=== PATIENT | female | born 1945 | race Caucasian/White ===

== ENCOUNTER 2017-10-16 15:30 | Emergency (ER) | payer MEDICARE, BC ==
[~2017-10-16] VITALS: Ht 167.6 cm; Wt 58.0 kg
[2017-10-16 15:34] VITALS: BP 97/51; TEMP 98.1
[2017-10-16 15:47] VITALS: BP 132/64; PULSE 67; O2SAT 100
[2017-10-16 15:55] VITALS: BP_SYST 130; BP_SYST 134; BP_DIAS 60; BP_DIAS 62
[2017-10-16] MEDS ORDERED: SODIUM CHLOR 0.9% 1000 ML INJ 1,000 ML IV ONE (16:00)
[2017-10-16] MEDS ORDERED: SODIUM CHLORID 0.9% 500 ML INJ 500 ML IV ONE (16:00)
--- NOTE | 2017-10-16 16:12 | PD ---
HPI Chief Complaint: Syncope/Near-Syncope Time Seen by Provider: 15:32 Travel History International Travel<30 days: No Contact w/Intl Traveler<30days: No Traveled to known affect area: No History of Present Illness HPI 72-year-old female that presents to the ED for evaluation of presyncope. Apparently patient was visiting her sister who got in an MVA and is admitted to this hospital. Apparently when she got in the room she started feeling hot, started getting very lightheaded and almost passed out per patient. is at bedside who helped the patient to a chair. She did not hit her head or lose consciousness. She does have a history of atrial fibrillation in the past. She has a history of low blood pressure in the past. 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 She reports having episodes like this in the past and this will be the third time. Apparently patient has never been seen for this before however. She did went to see her primary care doctor on Thursday and had routine blood work and imaging that did not show any sign of acute disease. She denies any symptoms preloading to the episode alert and feeling lightheaded and hot. She denies any chest pain or shortness of breath. Currently she feels as symptomatic. She states eating and drinking today. No allergies to medication. No other medical issues. No numbness, tingling, weakness. PFSH Past Medical History AAA: Yes (ascending aortic aneursym 4.4 cm at last measurement 04/2017) Musculoskeletal: Yes (2 metal rods and 6 screws in back/stenosis & ruptured disc/scoliosis) Respiratory: Yes (bronchitis 2 mths ago) Influenza Vaccination: Yes ?: Not Social History Alcohol Use: No Tobacco Use: No Substance Use: No Allergies-Medications (Allergen,Severity, Reaction): Coded Allergies: No Known Allergies (Unverified , 10/16/17) Reported Meds & Prescriptions Reported Meds & Active Scripts Active Keflex (Cephalexin) 500 Mg Cap 500 Mg PO Q12H 7 Days Review of Systems Except as stated in HPI: all other systems reviewed are Neg Physical Exam Narrative GENERAL: SKIN: Warm and dry. HEAD: Atraumatic. Normocephalic. EYES: Pupils equal and round. No scleral icterus. No injection or drainage. ENT: No nasal bleeding or discharge. Mucous membranes pink and moist. Tongue is midline. No uvula deviation. NECK: Trachea midline. No JVD. CARDIOVASCULAR: Regular rate and rhythm. No murmurs, S3, S4. RESPIRATORY: No accessory muscle use. Clear to auscultation. Breath sounds equal bilaterally. GASTROINTESTINAL: Abdomen soft, non-tender, nondistended. Hepatic and splenic margins not palpable. MUSCULOSKELETAL: Extremities without clubbing, cyanosis, or edema. No obvious deformities. Full range of motion of the upper and lower extremities bilaterally. 2+ pulses bilaterally. NEUROLOGICAL: Awake and alert. No obvious cranial nerve deficits. Motor grossly within normal limits. Five out of 5 muscle strength in the arms and legs. Normal speech. PSYCHIATRIC: Appropriate mood and affect; insight and judgment normal. Data Data Last Documented VS Vital Signs Date Time Temp Pulse Resp B/P (MAP) Pulse Ox O2 Delivery O2 Flow Rate FiO2 10/16/17 15:55 134/62 (86) 130/60 (83) 10/16/17 15:47 67 100 Room Air 10/16/17 15:34 98.1 Orders Orders Electrocardiogram (10/16/17 15:41) Complete Blood Count With Diff (10/16/17 15:41) Basic Metabolic Panel (Bmp) (10/16/17 15:41) Ckmb (Isoenzyme) Profile (10/16/17 15:41) Troponin I (10/16/17 15:41) Prothrombin Time / Inr (Pt) (10/16/17 15:41) Act Partial Throm Time (Ptt) (10/16/17 15:41) Urinalysis - C+S If Indicated (10/16/17 15:41) Magnesium (Mg) (10/16/17 15:41) Thyroid Stimulating Hormone (10/16/17 15:41) Chest, Single Ap (10/16/17 15:41) Ct Brain W/O Iv Contrast(Rout) (10/16/17 15:41) Iv Access Insert/Monitor (10/16/17 15:41) Ecg Monitoring (10/16/17 15:41) Oximetry (10/16/17 15:41) Cta Thor Abd Aorta W Iv C W3d (10/16/17 ) Orthostatic Vital Signs (10/16/17 15:42) Sodium Chlor 0.9% 1000 Ml Inj (Ns 1000 M (10/16/17 16:00) Sodium Chlorid 0.9% 500 Ml Inj (Ns 500 M (10/16/17 16:00) Iohexol 350 Inj (Omnipaque 350 Inj) (10/16/17 18:22) Radiology Film Requests (10/16/17 ) Radiology Film Requests (10/16/17 ) Ed Discharge Order (10/16/17 19:30) Labs Laboratory Tests Test 10/16/17 15:41 10/16/17 18:40 White Blood Count 4.6 TH/MM3 Red Blood Count 4.09 MIL/MM3 Hemoglobin 13.1 GM/DL Hematocrit 39.5 % Mean Corpuscular Volume 96.5 FL Mean Corpuscular Hemoglobin 32.1 PG Mean Corpuscular Hemoglobin Concent 33.3 % Red Cell Distribution Width 14.0 % Platelet Count 179 TH/MM3 Mean Platelet Volume 9.0 FL Neutrophils (%) (Auto) 45.9 % Lymphocytes (%) (Auto) 44.8 % Monocytes (%) (Auto) 6.7 % Eosinophils (%) (Auto) 2.3 % Basophils (%) (Auto) 0.3 % Neutrophils # (Auto) 2.1 TH/MM3 Lymphocytes # (Auto) 2.1 TH/MM3 Monocytes # (Auto) 0.3 TH/MM3 Eosinophils # (Auto) 0.1 TH/MM3 Basophils # (Auto) 0.0 TH/MM3 CBC Comment DIFF FINAL Differential Comment Prothrombin Time 10.3 SEC Prothromb Time International Ratio 1.0 RATIO Activated Partial Thromboplast Time 23.0 SEC Blood Urea Nitrogen 16 MG/DL Creatinine 0.85 MG/DL Random Glucose 98 MG/DL Calcium Level 8.9 MG/DL Magnesium Level 2.0 MG/DL Sodium Level 143 MEQ/L Potassium Level 4.0 MEQ/L Chloride Level 110 MEQ/L Carbon Dioxide Level 26.0 MEQ/L Anion Gap 7 MEQ/L Estimat Glomerular Filtration Rate 66 ML/MIN Total Creatine Kinase 76 U/L Troponin I LESS THAN 0.02 NG/ML Thyroid Stimulating Hormone 3rd Gen 4.390 uIU/ML Urine Color YELLOW Urine Turbidity CLEAR Urine pH 6.0 Urine Specific [place] 1.020 Urine Protein NEG mg/dL Urine Glucose (UA) NEG mg/dL Urine Ketones TRACE mg/dL Urine Occult Blood SMALL Urine Nitrite NEG Urine Bilirubin NEG Urine Urobilinogen LESS THAN 2 mg/dL Urine Leukocyte Esterase TRACE Urine RBC 4 /hpf Urine WBC 1 /hpf Urine Bacteria OCC /hpf Urine Mucus FEW /lpf Microscopic Urinalysis Comment CULT NOT INDICATED MDM Medical Decision Making Medical Screen Exam Complete: Yes Emergency Medical Condition: Yes Medical Record Reviewed: Yes Interpretation(s) CBC & BMP Diagram 10/16/17 15:41 Calcium Level 8.9, Magnesium Level 2.[address] 10/16/17 1541 Signed Impressions: CONCLUSION: Negative noncontrast head CT. Chest X-Ray 10/16/17 1541 Signed Impressions: CONCLUSION: No acute cardiopulmonary disease. Aorta CTA 10/16/17 0000 Signed Impressions: CONCLUSION: No evidence of acute arterial injury. 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 Troponin and CK-MB negative Urine did show signs of possible UTI. Differential Diagnosis Syncope versus presyncope versus ACS versus aneurysm rupture versus arrhythmia versus normal exam Narrative Course 72-year-old female that presents to the ED for evaluation of syncope. Patient was properly examined and was found to have signs and symptoms consistent with presyncope. She apparently had some low blood pressure. She does have a history of aneurysm. Patient does have good pulses in all extremities. We will do lab work and imaging. My attending Dr. Kingston agrees that this should be done. Labs and imaging showed possible UTI and what appears to be aneurysm of 4.5 cm. I discussed the case with Dr. Terrell for cardiothoracic surgery who agrees the patient can follow-up outpatient for the aneurysm. I spoke with my attending Dr. Carter to evaluate the patient himself and agrees the patient can be discharged with follow-up with PCP. Patient was started Keflex for possible UTI. Told to follow-up closely with PCP. See ED if worsening symptoms. Drink plenty of fluids. Diagnosis Primary Impression: Pre-syncope Additional Impressions: UTI (urinary tract infection) Qualified Codes: N30.00 - Acute cystitis without hematuria Thoracic aortic aneurysm Qualified Codes: I71.2 - Thoracic aortic aneurysm, without rupture Patient Instructions: General Instructions Additional Instructions: Follow-up with PCP. Follow with her thoracic surgeon. See ED if worsening symptoms. Take medication as prescribed. Med/Other Pt SpecificInfo: Prescription(s) given Scripts Cephalexin (Keflex) 500 Mg Cap 500 MG PO Q12H for Infection for 7 Days, #14 CAP 0 Refills Prov: Live Kingston MD 10/16/17 Disposition: 01 DISCHARGE HOME Condition: Stable Jesus Sykes Oct 16, 2017 16:12
--- NOTE | 2017-10-16 16:16 | RADRPT ---
EXAM DATE: 10/16/2017 4:08 PM EDT AGE/SEX: 72 years / Female INDICATIONS: Syncopal episode today CLINICAL DATA: This is the patient's initial encounter. Patient reports that signs and symptoms have been present for 1 day and indicates a pain score of 0/10. MEDICAL/SURGICAL HISTORY: None. None. COMPARISON: No prior exams available for comparison. FINDINGS: No significant focal pleural or parenchymal opacities. Cardiomediastinal contours are within normal l imits. Bony thorax is intact. CONCLUSION: No acute cardiopulmonary disease. Electronically signed by: Rivas Santiago MD 10/16/2017 4:14 PM EDT
[2017-10-16 16:36] LABS: AUTOMATED NEUTROPHIL # 2.1 TH/MM3 (1.8-7.7); BASOPHIL % 0.3 % (0.0-2.0); EOSINOPHIL # 0.1 TH/MM3 (0-0.4); EOSINOPHIL % 2.3 % (0.0-4.0); HEMATOCRIT 39.5 % (35.0-46.0); HEMOGLOBIN 13.1 GM/DL (11.6-15.3); LYMPH % 44.8 % (9.0-44.0); LYMPHOCYTE # 2.1 TH/MM3 (1.0-4.8); MEAN CELL VOLUME 96.5 FL (80.0-100.0); MEAN CORPUSCULAR HEMOGLOBIN 32.1 PG (27.0-34.0); MEAN CORPUSCULAR HGB CONC 33.3 % (32.0-36.0); MONO % 6.7 % (0.0-8.0); MONOCYTE # 0.3 TH/MM3 (0-0.9); NEUT % 45.9 % (16.0-70.0); PLATELET COUNT 179 TH/MM3 (150-450); RED BLOOD COUNT 4.09 MIL/MM3 (4.00-5.30); WHITE BLOOD COUNT 4.6 TH/MM3 (4.0-11.0)
[2017-10-16 16:37] LABS: PROTHROMBIN TIME - PATIENT 10.3 SEC (9.8-11.6)
[2017-10-16 16:51] LABS: BLOOD UREA NITROGEN 16 MG/DL (7-18); CALCIUM 8.9 MG/DL (8.5-10.1); CHLORIDE 110 MEQ/L (98-107); CREATININE 0.85 MG/DL (0.50-1.00); GLOMERULAR FILTRATION RATE 66 ML/MIN (>89); GLUCOSE,RANDOM 98 MG/DL (74-106); SODIUM (NA) 143 MEQ/L (136-145)
[2017-10-16 17:00] LABS: TROPONIN I LESS THAN 0.02 NG/ML (0.02-0.05)
--- NOTE | 2017-10-16 18:05 | RADRPT ---
EXAM DATE: 10/16/2017 6:01 PM EDT AGE/SEX: 72 years / Female INDICATIONS: Dizziness today. CLINICAL DATA: This is the patient's initial encounter. Patient reports that signs and symptoms have been present for 1 day and indicates a pain score of 0/10. MEDICAL/SURGICAL HISTORY: None. None. RADIATION DOSE: 39.54 CTDI (mGy) COMPARISON: No prior exams available for comparison. TECHNIQUE: CT of the head without contrast. Using automated exposure control and adjustment of the mA and/or kV according to patient size, radiation dose was kept as low as reasonably achievable to ob tain optimal diagnostic quality images. DICOM format image data is available electronically for revi ew and comparison. FINDINGS: Cerebrum: The ventricles are normal for age. No evidence of midline shift, mass lesion, hemorrhage or acute infarction. No extraaxial fluid collections are seen. Posterior Fossa: The cerebellum and brainstem are intact. The 4th ventricle is midline. The cerebe llopontine angle is unremarkable. Extracranial: The visualized portion of the orbits is intact. Skull: The calvaria is intact. No evidence of skull fracture. CONCLUSION: Negative noncontrast head CT. Electronically signed by: Lokesh Howard MD 10/16/2017 6:04 PM EDT
[2017-10-16] MEDS ORDERED: IOHEXOL 350 MG/ML 10 ML VIAL (for RAD DIAG) IVCONTRAST ONE (18:22)
--- NOTE | 2017-10-16 18:25 | PD ---
Data Data Last Documented VS Vital Signs Date Time Temp Pulse Resp B/P (MAP) Pulse Ox O2 Delivery O2 Flow Rate FiO2 10/16/17 15:55 134/62 (86) 130/60 (83) 10/16/17 15:47 67 100 Room Air 10/16/17 15:34 98.1 Orders Orders Electrocardiogram (10/16/17 15:41) Complete Blood Count With Diff (10/16/17 15:41) Basic Metabolic Panel (Bmp) (10/16/17 15:41) Ckmb (Isoenzyme) Profile (10/16/17 15:41) Troponin I (10/16/17 15:41) Prothrombin Time / Inr (Pt) (10/16/17 15:41) Act Partial Throm Time (Ptt) (10/16/17 15:41) Urinalysis - C+S If Indicated (10/16/17 15:41) Magnesium (Mg) (10/16/17 15:41) Thyroid Stimulating Hormone (10/16/17 15:41) Chest, Single Ap (10/16/17 15:41) Ct Brain W/O Iv Contrast(Rout) (10/16/17 15:41) Iv Access Insert/Monitor (10/16/17 15:41) Ecg Monitoring (10/16/17 15:41) Oximetry (10/16/17 15:41) Cta Thor Abd Aorta W Iv C W3d (10/16/17 ) Orthostatic Vital Signs (10/16/17 15:42) Sodium Chlor 0.9% 1000 Ml Inj (Ns 1000 M (10/16/17 16:00) Sodium Chlorid 0.9% 500 Ml Inj (Ns 500 M (10/16/17 16:00) Iohexol 350 Inj (Omnipaque 350 Inj) (10/16/17 18:22) Labs Laboratory Tests Test 10/16/17 15:41 White Blood Count 4.6 TH/MM3 Red Blood Count 4.09 MIL/MM3 Hemoglobin 13.1 GM/DL Hematocrit 39.5 % Mean Corpuscular Volume 96.5 FL Mean Corpuscular Hemoglobin 32.1 PG Mean Corpuscular Hemoglobin Concent 33.3 % Red Cell Distribution Width 14.0 % Platelet Count 179 TH/MM3 Mean Platelet Volume 9.0 FL Neutrophils (%) (Auto) 45.9 % Lymphocytes (%) (Auto) 44.8 % Monocytes (%) (Auto) 6.7 % Eosinophils (%) (Auto) 2.3 % Basophils (%) (Auto) 0.3 % Neutrophils # (Auto) 2.1 TH/MM3 Lymphocytes # (Auto) 2.1 TH/MM3 Monocytes # (Auto) 0.3 TH/MM3 Eosinophils # (Auto) 0.1 TH/MM3 Basophils # (Auto) 0.0 TH/MM3 CBC Comment DIFF FINAL Differential Comment Prothrombin Time 10.3 SEC Prothromb Time International Ratio 1.0 RATIO Activated Partial Thromboplast Time 23.0 SEC Blood Urea Nitrogen 16 MG/DL Creatinine 0.85 MG/DL Random Glucose 98 MG/DL Calcium Level 8.9 MG/DL Magnesium Level 2.0 MG/DL Sodium Level 143 MEQ/L Potassium Level 4.0 MEQ/L Chloride Level 110 MEQ/L Carbon Dioxide Level 26.0 MEQ/L Anion Gap 7 MEQ/L Estimat Glomerular Filtration Rate 66 ML/MIN Total Creatine Kinase 76 U/L Troponin I LESS THAN 0.02 NG/ML Thyroid Stimulating Hormone 3rd Gen 4.390 uIU/ML MDM Supervised Visit with AUDI: Yes Narrative Course I, Dr. Kingston, have reviewed the advance practice practitioner's documentation and am in agreement, met with the patient face to face, made the diagnosis, and the medical decision making was done by me. *My assessment and Findings: Patient had a syncopal/presyncopal episode and came in for evaluation. Currently doing well. Brain CT and labs normal. She does have known aortic aneurysm and that is going to be evaluated here. If that turns out to be stable without leak she will be discharged home. She is currently doing well Live Kingston MD Oct 16, 2017 18:25
--- NOTE | 2017-10-16 19:02 | RADRPT ---
EXAM DATE: 10/16/2017 6:37 PM EDT AGE/SEX: 72 years / Female INDICATIONS: Syncopal episode today. CLINICAL DATA: This is the patient's initial encounter. Patient reports that signs and symptoms have been present for 1 day and indicates a pain score of 0/10. MEDICAL/SURGICAL HISTORY: None. Fusion, lumbar. RADIATION DOSE: 11.05 CTDI (mGy) COMPARISON: No prior exams available for comparison. TECHNIQUE: Volumetric scanning was performed using a multi-row detector CT scanner during bolus infu serge of 100 ml Omnipaque 350 (iohexol) nonionic water-soluble contrast as a single exam dose. The d peter was post processed with a variety of visualization algorithms including full volume maximum inten sity projection, multi-planar sliding thin slab reformation, curved planar reformation, and surface r endering techniques. Using automated exposure control and adjustment of the mA and/or kV according t o patient size, radiation dose was kept as low as reasonably achievable to obtain optimal diagnostic quality images. DICOM format image data is available electronically for review and comparison. FINDINGS: The lungs are free of acute parenchymal opacity. No pulmonary nodules or pleural effusions are identi fied. There is aneurysmal dilatation of the thoracic aorta just distal to the left subclavian artery measuring 4.5 cm without dissection. No abnormally enlarged lymph nodes are identified. The liver and spleen are free of focal defects. The gallbladder and pancreas demonstrate no abnormali ty. The adrenal glands are normal. The kidneys demonstrate no evidence of solid renal mass or hydrone phrosis. No free fluid or abdominal masses are identified. No para-aortic adenopathy is seen. Examina tion of the pelvis demonstrates no evidence of free fluid or pelvic mass. No abnormally enlarged ingu inal or retroperitoneal lymph nodes are present. The bladder is unremarkable. The aorta is normal in caliber. There is no evidence of aneurysm or dissection. The renal artery orig ins are patent bilaterally. The celiac axis and superior mesenteric artery origins are also patent. T he aortic bifurcation and iliac vessels are patent. CONCLUSION: No evidence of acute arterial injury. 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
[2017-10-16 19:06] LABS: BACTERIA, URINE OCC /hpf; BILIRUBIN, URINE NEG (NEG); BLOOD, URINE SMALL (NEG); GLUCOSE,URINE NEG (NEG); KETONE, URINE TRACE mg/dL (NEG); MUCUS URINE FEW /lpf (OCC); NITRITE,URINE NEG (NEG); URINE COLOR YELLOW (YELLW/STRAW); URINE LEUKOCYTE ESTERASE TRACE (NEG)
[2017-10-16] MEDS ORDERED: CEPH-460 PO (19:21)
[2017-10-16 19:33] VITALS: BP 125/70; PULSE 76; RESP 18; O2SAT 96
[2017-10-16] MEDS ORDERED: CEPHALEXIN MONOHYDRATE 500 MG CAP PO ONE (19:45)
--- NOTE | 2017-10-17 15:12 | EKG ---
Date Performed: 10/16/2017 Time Performed: 15:44:49 PTAGE: 72 years EKG: Sinus rhythm INCOMPLETE RIGHT BUNDLE BRANCH BLOCK BORDERLINE ECG NO PREVIOUS TRACING DOCTOR: Zane Ho Interpretating Date/Time 10/17/2017 15:08:59
== END 2017-10-16 20:19 | disposition home or self-care (01) ==
LOC: NEPE 15:30
DX: R55 Syncope and collapse (principal); N30.00 Acute cystitis without hematuria; I71.2 Thoracic aortic aneurysm, without rupture; I45.10 Unspecified right bundle-branch block; I95.9 Hypotension, unspecified
CPT/HCPCS: 70450; 71045; 71275; 74174; 80048; 81001; 82550; 83735; 84443; 84484; 85025; 85610; 85730; 93005; 96360; 99285; J7030; J7040; Q9967